=== PATIENT | female | born 2000 | race African-American/Black ===

== ENCOUNTER 2018-06-28 23:22 | Emergency (ER) | payer SELFPAY | END 2018-06-29 01:31 | disposition home or self-care (01) | LOC: ERS 23:22 | DX: J02.9 Acute pharyngitis, unspecified (principal) | CPT/HCPCS: 87804; 99283 ==

== ENCOUNTER 2024-04-18 14:45 | Emergency (ER) | payer SELFPAY | END 2024-04-18 15:57 | disposition home or self-care (01) | LOC: ERS 14:45 | DX: S71.112D Laceration without foreign body, left thigh, subsequent encounter (principal) ==